=== PATIENT | female | born 1960 | race Caucasian/White ===

== ENCOUNTER 2016-10-06 13:35 | Emergency (ER) | payer OTHER, BC ==
[2016-10-06 13:36] VITALS: BMI 21.9
[2016-10-06 13:56] VITALS: BP 115/77; PULSE 77; RESP 16; TEMP 98.5; O2SAT 96
--- NOTE | 2016-10-06 13:59 | ED PDOC ---
Arrival/HPI - General Chief Complaint: Finger,Hand,&Wrist Time Seen by Provider: 10/06/16 13:57 Historian: Patient - History of Present Illness Narrative History of Present Illness (Text): 10/06/16 13:57 This 55-year-old female presents to this emergency department complaining of left fourth finger pain 2 weeks. Patient stated while pushing a stretcher, she developed an acute left fourth finger pain. Patient has been taken over-the- counter medication for pain. Patient has seen her primary care physician for same pain. Patient has an appointment to see orthopedic in 2 weeks. Patient denies other complaints Time/Duration: Other (2 weeks) Quality: Aching Context: Home Past Medical History - Provider Review Nursing Documentation Reviewed: Yes - Infectious Disease Hx of Infectious Diseases: None - Tetanus Immunization Tetanus Immunization: Unknown - Past Medical History Past Medical History: Unable to Obtain - Cardiac Hx Cardiac Disorders: No - Pulmonary Hx Respiratory Disorders: No - Neurological Hx Neurological Disorder: Yes Hx Dizziness: Yes Hx Vertigo: Yes - HEENT Hx HEENT Disorder: Yes - Renal Hx Renal Disorder: No - Endocrine/Metabolic Hx Endocrine Disorders: Yes Hx Diabetes Mellitus Type 2: Yes (niddm) - Hematological/Oncological Hx Blood Disorders: No - Integumentary Hx Dermatological Disorder: No - Musculoskeletal/Rheumatological Hx Musculoskeletal Disorders: Yes Hx Falls: Yes - Gastrointestinal Hx Gastrointestinal Disorders: Yes Hx Colitis: Yes Hx Diverticulitis: Yes Hx Gall Bladder Disease: Yes Hx Hemorrhoids: Yes - Genitourinary/Gynecological Hx Genitourinary Disorders: No - Psychiatric Hx Psychophysiologic Disorder: No Hx Substance Use: No - Past Surgical History Past Surgical History: Unable to Obtain - Surgical History Hx Section: Yes Hx Cholecystectomy: Yes Other/Comment: rhinoplasty - Anesthesia Hx Anesthesia: Yes Hx Anesthesia Reactions: No Hx Malignant Hyperthermia: No - Suicidal Assessment Feels Threatened In Home Enviroment: No Family/Social History - Physician Review Nursing Documentation Reviewed: Yes Family/Social History: No Known Family HX Smoking Status: Never Smoked Hx Alcohol Use: Yes (WINE SOCIALLY) Hx Substance Use: No Hx Substance Use Treatment: No Allergies/Home Meds Allergies/Adverse Reactions: Allergies aspirin Allergy (Verified 10/06/16 13:53) RASH lansoprazole [From Prevacid] Allergy (Verified 10/06/16 13:53) RASH Home Medications: Home Meds Medication Instructions Recorded Confirmed Metformin Hydrochloride [Metformin] 250 mg PO BID 02/07/12 08/09/15 Multivitamin [Multivitamin] 1 tab PO DAILY 02/13/13 08/09/15 Atorvastatin [Lipitor] 10 mg PO DAILY 03/31/15 08/09/15 Review of Systems - Review of Systems Constitutional: Normal. absent: Fatigue, Weight Change, Fevers Eyes: Normal ENT: Normal Respiratory: Normal Cardiovascular: Normal Gastrointestinal: Normal Genitourinary Female: Normal Musculoskeletal: Other (left 4th finger pain) Skin: Normal Neurological: Normal Endocrine: Normal Hemo/Lymphatic: Normal Psychiatric: Normal Physical Exam Vital Signs Temp Pulse Resp BP Pulse Ox 10/06/16 13:53 98.5 F 77 16 115/77 96 Temperature: Afebrile Blood Pressure: Normal Pulse: Regular Respiratory Rate: Normal Appearance: Positive for: Well-Appearing, Non-Toxic, Comfortable Pain Distress: None Mental Status: Positive for: Alert and Oriented X 3 - Systems Exam Head: Present: Atraumatic, Normocephalic Pupils: Present: PERRL Extroacular Muscles: Present: EOMI Conjunctiva: Present: Normal Mouth: Present: Moist Mucous Membranes Neck: Present: Normal Range of Motion Back: Present: Normal Inspection Upper Extremity: Present: Normal Inspection, Normal ROM, NORMAL PULSES, Tenderness (mild tenderness at left 4th proximal phalanx, and distal 4th metacarpal bone area. No swelling, erythema, or ecchymosis.). No: Cyanosis, Edema Lower Extremity: Present: Normal Inspection. No: Edema Neurological: Present: GCS=15, CN II-XII Intact, Speech Normal Skin: Present: Warm, Dry, Normal Color. No: Rashes Psychiatric: Present: Alert, Oriented x 3, Normal Insight, Normal Concentration Medical Decision Making ED Course and Treatment: 10/06/16 14:29 Patient can complaining of left finger pain 2 weeks. Physical exam was unremarkable. No ecchymosis, swelling, erythema visualized on left hand\fourth finger. Finger splint was ordered. Patient was recommended to follow Workmen's Comp. Patient was also recommended to follow [employer] recommendation. To return to the emergency if symptoms persist. Re-evaluation Time: 14:31 Reassessment Condition: Re-examined, Improved - RAD Interpretation Narrative RAD Interpretations (Text): 06/09/17 14:32 Left fourth finger x-rays: No fracture or dislocation. Radiology Orders: 10/06/16 13:57 HAND LEFT 4TH DIGIT (FINGER) [RAD] Stat Disposition/Present on Arrival - Present on Arrival Any Indicators Present on Arrival: No History of DVT/PE: No History of Uncontrolled Diabetes: No Urinary Catheter: No History of Decub. Ulcer: No History Surgical Site Infection Following: None - Disposition Have Diagnosis and Disposition been Completed?: Yes Diagnosis: Finger pain, left Disposition: HOME/ ROUTINE Disposition Time: 14:32 Patient Plan: Discharge Condition: GOOD Discharge Instructions (ExitCare): Finger Sprain (ED) Additional Instructions: Employee [employer]. for follow-up visit in 1-2 days. Keep finger splint at all times until evaluated by Dr. Keep finger splint clean and dry. Take medication as instructed with food. Return to the emergency if symptoms worsen. [employer]. office located name [facility]. Prescriptions: Acetaminophen with Codeine [Tylenol with Codeine #3 Tablet] 1 each PO Q6H PRN # 10 tablet PRN Reason: Pain, Severe (8-10) Referrals: Victoriano Lopez MD [Primary Care Provider] - Follow up with primary Forms: WORK NOTE
--- NOTE | 2016-10-06 15:23 | RAD ---
PROCEDURE: Left Hand Radiographs. HISTORY: pain COMPARISON: None. FINDINGS: BONES: Normal. No fracture. JOINTS: Normal. No osteoarthritic changes. SOFT TISSUES: Normal. OTHER FINDINGS: None. IMPRESSION: Normal left hand radiographs.
== END 2016-10-06 14:55 | disposition home or self-care (01) ==
LOC: ED 13:35
DX: M79.645 Pain in left finger(s) (principal); E11.9 Type 2 diabetes mellitus without complications

== ENCOUNTER 2017-01-24 12:04 | Observation (INO) | payer OTHER, BC ==
[2017-01-24 12:04] VITALS: BMI 21.9
--- NOTE | 2017-01-24 12:43 | ED PDOC ---
Arrival/HPI - General Chief Complaint: Syncope Time Seen by Provider: 01/24/17 12:04 Historian: Patient - History of Present Illness Narrative History of Present Illness (Text): 01/24/17 12:27 A 56 year old female, whose past medical history includes diabetes and hyperlipidemia, presents to the emergency department complaining of syncopal episode. Patient reports while she was at work, she began to feel shaky and sweaty. In attempt to feel better, she ate some crackers and drank orange juice , but symptoms were not relieved. Patient began to experience dizziness as well and she was advised to visit the ER but wanted to eat instead because she thought it was due hypoglycemia (though her glucose check was 100). A while later patient passed out and fell head first, injuring her head. Patient denies of any fever, nausea, vomiting, abdominal pain, chest pain, shortness of breath, cough, urine output changes, visual changes, or any other complaints. Also, patient mentions she is no longer feeling shaky and sweating, only forehead pain from head injury. Patient takes medications for her diabetes and hyperlipidemia. PMD: Dr. Lopez Symptom Onset: Sudden Symptom Course: Unchanged Past Medical History - Provider Review Nursing Documentation Reviewed: Yes - Infectious Disease Hx of Infectious Diseases: None - Tetanus Immunization Tetanus Immunization: Unknown - Past Medical History Past Medical History: Unable to Obtain - Cardiac Hx Cardiac Disorders: No - Pulmonary Hx Respiratory Disorders: No - Neurological Hx Neurological Disorder: Yes Hx Dizziness: Yes Hx Vertigo: Yes - HEENT Hx HEENT Disorder: Yes - Renal Hx Renal Disorder: No - Endocrine/Metabolic Hx Endocrine Disorders: Yes Hx Diabetes Mellitus Type 2: Yes (niddm) - Hematological/Oncological Hx Blood Disorders: No - Integumentary Hx Dermatological Disorder: No - Musculoskeletal/Rheumatological Hx Musculoskeletal Disorders: Yes Hx Falls: Yes - Gastrointestinal Hx Gastrointestinal Disorders: Yes Hx Colitis: Yes Hx Diverticulitis: Yes Hx Gall Bladder Disease: Yes Hx Hemorrhoids: Yes - Genitourinary/Gynecological Hx Genitourinary Disorders: No - Psychiatric Hx Psychophysiologic Disorder: No Hx Substance Use: No - Past Surgical History Past Surgical History: Unable to Obtain - Surgical History Hx Section: Yes Hx Cholecystectomy: Yes Other/Comment: rhinoplasty - Anesthesia Hx Anesthesia: Yes Hx Anesthesia Reactions: No Hx Malignant Hyperthermia: No - Suicidal Assessment Feels Threatened In Home Enviroment: No Family/Social History - Physician Review Nursing Documentation Reviewed: Yes Family/Social History: No Known Family HX Smoking Status: Never Smoked Hx Alcohol Use: Yes (WINE SOCIALLY) Hx Substance Use: No Hx Substance Use Treatment: No Allergies/Home Meds Allergies/Adverse Reactions: Allergies aspirin Allergy (Verified 01/24/17 12:05) RASH lansoprazole [From Prevacid] Allergy (Verified 01/24/17 12:05) RASH Home Medications: Home Meds Medication Instructions Recorded Confirmed Metformin Hydrochloride [Metformin] 500 mg PO BID 02/07/12 01/24/17 Atorvastatin [Lipitor] 10 mg PO DAILY 03/31/15 01/24/17 Meclizine [Meclizine*] 25 mg PO Q6 PRN 01/24/17 01/24/17 Review of Systems - Physician Review All systems were reviewed & negative as marked: Yes - Review of Systems Constitutional: Other (head injury). absent: Fevers, Night Sweats Eyes: absent: Vision Changes Respiratory: absent: SOB, Cough Cardiovascular: Syncope. absent: Chest Pain Gastrointestinal: absent: Abdominal Pain, Nausea, Vomiting Genitourinary Female: absent: Urine Output Changes Neurological: Headache, Dizziness Endocrine: Other (felt like hypoglycemia) Physical Exam Vital Signs Temp Pulse Resp BP Pulse Ox 01/24/17 14:04 98.4 F 84 15 137/80 100 01/24/17 12:04 98.3 F 85 14 139/77 96 Temperature: Afebrile Blood Pressure: Normal Pulse: Regular Respiratory Rate: Normal Appearance: Positive for: Well-Appearing, Non-Toxic, Comfortable Pain Distress: None Mental Status: Positive for: Alert and Oriented X 3 Finger Stick Blood Glucose: 137 - Systems Exam Head: Present: Tenderness (mild tenderness to left upper forehead), Swelling ( mild swelling to left upper forehead) Pupils: Present: PERRL Extroacular Muscles: Present: EOMI Conjunctiva: Present: Normal Mouth: Present: Moist Mucous Membranes Pharnyx: Present: Normal. No: ERYTHEMA, EXUDATE Neck: Present: Normal Range of Motion. No: MIDLINE TENDERNESS Respiratory/Chest: Present: Clear to Auscultation, Good Air Exchange. No: Respiratory Distress, Accessory Muscle Use Cardiovascular: Present: Regular Rate and Rhythm, Normal S1, S2. No: Murmurs Abdomen: Present: Normal Bowel Sounds. No: Tenderness, Distention, Peritoneal Signs Back: Present: Normal Inspection. No: Midline Tenderness Upper Extremity: Present: Normal Inspection. No: Cyanosis, Edema Lower Extremity: Present: Normal Inspection. No: Edema Neurological: Present: GCS=15, CN II-XII Intact, Speech Normal, Motor Func Grossly Intact, Gait Normal, Memory Normal Skin: Present: Warm, Dry, Normal Color. No: Rashes Psychiatric: Present: Alert, Oriented x 3, Normal Insight, Normal Concentration Medical Decision Making ED Course and Treatment: 01/24/17 12:32 Impression: 56 year old female with syncopal episode and dizziness. Differential Diagnosis included but are not limited to: Hypoglycemia vs. Cardiogenic Syncope vs. Neurogenic Plan: -- EKG -- Brain CT -- Chest X-ray -- Labs -- Urinalysis -- Reassess and disposition Prior Visits: Notes and results from previous visits were reviewed. Patient was last seen in the emergency department on 10/06/2016 for left fourth finger pain. Patient was dicharged home. Progress Notes: 01/24/2017 13:15 Chest X-ray IMPRESSION: No active disease. No interval pathology appreciated Dictator: Dior Jarvis MD 01/23/2017 14:[address] IMPRESSION: No intracranial hemorrhage or mass effect. No calvarial fracture appreciated. Dictator: Dior Jarvis MD EKG: Ordered, reviewed, and independently interpreted the EKG. Rate : 89 BPM Rhythm : NSR Interpretation : No ST-segment elevations or depressions, no T-wave inversions, normal intervals. Comparison : No previous EKG for comparison. 01/24/17 15:34 Patient with noted history; brain CT with no m/s/b. Patient with syncope and though felt like possible hypglycemia, her glucose at the time of the check was normal. EKG and labs are unremarkable, but given h/o DM and hyperlipidemia, will need further observation on tele; discussed with Dr. Lopez for placement on her service. - Lab Interpretations Lab Results: 01/24/17 12:44 01/24/17 12:47 Lab Results 01/24/17 14:21: Urine Color Yellow, Urine Appearance Clear, Urine pH 6.0, Ur Specific [place] <= 1.005, Urine Protein Negative, Urine Glucose (UA) 250 H, Urine Ketones Negative, Urine Blood Negative, Urine Nitrate Negative, Urine Bilirubin Negative, Urine Urobilinogen 0.2, Ur Leukocyte Esterase Negative 01/24/17 12:50: PT 10.6, INR 0.98, APTT 33.5 H 01/24/17 12:47: Sodium 141, Potassium 3.7, Chloride 105, Carbon Dioxide 22, Anion Gap 18, BUN 13, Creatinine 0.7, Est GFR ( Amer) > 60, Est GFR (Non- Af Amer) > 60, Random Glucose 125 H, Calcium 9.8, Magnesium 1.8, Total Bilirubin 0.4, AST 29, ALT 25, Alkaline Phosphatase 83, Lactate Dehydrogenase 478, Total Creatine Kinase 125, Troponin I < 0.01, Total Protein 7.5, Albumin 4.5, Globulin 3.0, Albumin/Globulin Ratio 1.5, Lipase 234 01/24/17 12:44: WBC 9.6, RBC 4.63, Hgb 13.7, Hct 40.5, MCV 87.5, MCH 29.6, MCHC 33.8, RDW 12.4, Plt Count 220, MPV 9.9, Gran % 51.9, Lymph % (Auto) 41.8 H, Reagan % (Auto) 4.6, Eos % (Auto) 1.5, Baso % (Auto) 0.2, Gran # 5.00, Lymph # 4.0 H, Reagan # 0.4, Eos # 0.1, Baso # 0.02 I have reviewed the lab results: Yes - RAD Interpretation Radiology Orders: 01/24/17 12:45 Brain [HEAD W/O CONTRAST] [CT] Stat CHEST PORTABLE [RAD] Stat - Medication Orders Current Medication Orders: Sodium Chloride (Sodium Chloride 0.9%) 1,000 mls @ 999 mls/hr IV .Q1H1M STA Stop: 01/24/17 15:53 Last Admin: 01/24/17 15:06 Dose: 999 mls/hr eMAR Start Stop Document 01/24/17 15:06 AB (Rec: 01/24/17 15:06 AB [id number]) Intravenous Solution Start Date 01/24/17 Start Time 15:06 End Date 01/24/17 End time 16:06 Total Infusion Time 60 Discontinued Medications Famotidine (Pepcid) 20 mg IVP STAT STA Stop: 01/24/17 14:51 Last Admin: 01/24/17 15:05 Dose: 20 mg IVP Administration Document 01/24/17 15:05 AB (Rec: 01/24/17 15:06 [id number] Charges for Administration # of IVP Administrations 1 Ondansetron HCl (Zofran Inj) 4 mg IVP STAT STA Stop: 01/24/17 14:51 Last Admin: 01/24/17 15:03 Dose: 4 mg IVP Administration Document 01/24/17 15:03 AB (Rec: 01/24/17 15:05 [id number] Charges for Administration # of IVP Administrations 1 - Scribe Statement The provider has reviewed the documentation as recorded by the Rosaura Diehl Provider Scribe Attestation: All medical record entries made by the Scribe were at my direction and personally dictated by me. I have reviewed the chart and agree that the record accurately reflects my personal performance of the history, physical exam, medical decision making, and the department course for this patient. I have also personally directed, reviewed, and agree with the discharge instructions and disposition. Disposition/Present on Arrival - Present on Arrival Any Indicators Present on Arrival: No History of DVT/PE: No History of Uncontrolled Diabetes: No Urinary Catheter: No History of Decub. Ulcer: No History Surgical Site Infection Following: None - Disposition Have Diagnosis and Disposition been Completed?: Yes Diagnosis: Syncope Disposition: HOSPITALIZED Disposition Time: 14:37 Patient Plan: Observation, Telemetry Condition: FAIR
[2017-01-24 12:54] LABS: BASO # 0.02 K/mm3 (0.0-2.0); BASO % 0.2 % (0.0-3.0); EOS # 0.1 (0.0-0.7); EOS % 1.5 % (1.5-5.0); GRAN % 51.9 % (50.0-68.0); HEMATOCRIT 40.5 % (36.0-48.0); LYMPH % 41.8 % (22.0-35.0); MEAN CELL VOLUME 87.5 fl (80.0-105.0); MEAN CORPUSCULAR HEMOGLOBIN 29.6 pg (25.0-35.0); MEAN CORPUSCULAR HGB CONC 33.8 g/dl (31.0-37.0); MEAN PLATELET VOLUME 9.9 fl (7.0-11.0); MONO # 0.4 (0.1-0.6); MONO % 4.6 % (1.0-6.0); RED CELL DISTRIBUTION WIDTH 12.4 % (11.5-14.5); WHITE BLOOD COUNT 9.6 10^3/ul (4.5-11.0)
[2017-01-24 13:02] LABS: INR 0.98 (0.93-1.08); PARTIAL THROMBOPLASTIN TIME 33.5 Seconds (23.7-30.8)
[2017-01-24 13:04] LABS: ALB/GLOB RATIO 1.5 (1.1-1.8); ALKALINE PHOSPHATASE 83 U/L (38-126); ALT/SGPT 25 U/L (7-56); AST/SGOT 29 U/L (14-36); BILIRUBIN,TOTAL 0.4 mg/dL (0.2-1.3); BLOOD UREA NITROGEN 13 mg/dL (7-21); CALCIUM 9.8 mg/dL (8.4-10.5); CARBON DIOXIDE 22 mmol/L (21-33); CHLORIDE 105 mmol/L (98-107); GFR AFRICAN-AMERICAN > 60; GLUCOSE,RANDOM 125 mg/dL (70-110); LIPASE 234 U/L (23-300); MAGNESIUM 1.8 mg/dL (1.7-2.2); POTASSIUM 3.7 mmol/L (3.6-5.0); SODIUM 141 mmol/L (132-148); TOTAL PROTEIN 7.5 g/dL (5.8-8.3)
[2017-01-24 13:13] LABS: TROPONIN I < 0.01 ng/mL
--- NOTE | 2017-01-24 13:17 | RAD ---
HISTORY: syncope COMPARISON: 09/08/2015 FINDINGS: LUNGS: No active pulmonary disease. PLEURA: No significant pleural effusion identified, no pneumothorax apparent. CARDIOVASCULAR: Mild cardiomegaly and similar probable top-normal appearance to the right hilum OSSEOUS STRUCTURES: No significant abnormalities. VISUALIZED UPPER ABDOMEN: Normal. OTHER FINDINGS: None. IMPRESSION: No active disease. No interval pathology appreciated
--- NOTE | 2017-01-24 13:52 | PCM.RRT ---
<MehdiNareshn - Last Filed: 01/24/17 15:00> TAX ECONOMIST Nurse Assessment - Situation Date: 01/24/17 Time TAX ECONOMIST was called: 11:42 TAX ECONOMIST Responder Arrival Time: 11:45 TAX ECONOMIST Location:: [facility], 1b elevator Room Number: n/a TAX ECONOMIST Reason for Call: Change in Mental Status TAX ECONOMIST Called By: Other Disciplines - IV IV Inserted during TAX ECONOMIST?: No - Respiratory Oxygen Delivery Method: Room Air I.Reason for TAX ECONOMIST - A) Acute Change in Patient: Subjective: This is a 56 year old female with a history of Type 2 Diabetes Mellitus who was called after falling on the first floor by the B elevators. The patient stated that she felt "shaky" and needed to eat something. The patient was witnessed by a coworker falling down and hitting her head. The patient was blood glucose upon initial check was 99. Patient was sinus tachycardic at 112. The patient was given orange juice to drink and transferred to the emergency department on a stretcher for further testing. - Head Head Exam: ATRAUMATIC, NORMAL INSPECTION, NORMOCEPHALIC - Eyes Eye Exam: EOMI, Normal appearance, PERRL. absent: Periorbital tenderness - Respiratory Exam Respiratory Exam: Clear to Ausculation Bilateral, NORMAL BREATHING PATTERN. absent: Accessory Muscle Use, Chest Wall Tenderness - Cardiovascular Exam Cardiovascular Exam: Tachycardia, REGULAR RHYTHM, +S1, +S2. absent: Diastolic murmur - GI/Abdominal Exam GI & Abdominal Exam: Soft, Normal Bowel Sounds. absent: Rigid, Tenderness - Neurological Exam Neurological Exam: Alert, Awake, CN II-XII Intact, Normal Gait, Oriented x3. absent: Altered - Extremities Exam Extremities Exam: Full ROM Plan - Assessment of Findings&Treatment Plan This is a 56 year old female with a past medical history of diabetes who a Rapid response was called due to possible unwitnessed syncopal episode. Patient currently takes Metformin 500mg BID. Patient blood glucose 99. The patient was hemodynamically stable. -Gave her orange juice and transferred her to the emergency department for further testing. -Discussed with Attending the plan of action. <Sanya Jackson B - Last Filed: 01/24/17 18:47> Attending/Attestation - Attestation I have personally seen and examined this patient.: Yes I have fully participated in the care of the patient.: Yes I have reviewed all pertinent clinical information, including history, physical exam and plan: Yes
[2017-01-24 14:24] LABS: URINE BILIRUBIN NEGATIVE (NEGATIVE); URINE BLOOD NEGATIVE (NEGATIVE); URINE GLUCOSE (UA) 250 mg/dL (NEGATIVE); URINE KETONE NEGATIVE (NEGATIVE); URINE LEUKOCYTE ESTERASE NEGATIVE Leu/uL (NEGATIVE); URINE PROTEIN NEGATIVE mg/dL (<30 mg/dL); URINE UROBILINOGEN 0.2 E.U./dL (<1 E.U./dL)
[2017-01-24 14:26] LABS: URINE APPEARANCE CLEAR (CLEAR); URINE COLOR YELLOW (YELLOW)
[2017-01-24] MEDS ORDERED: Sodium Chloride 0.9% 1,000 ML IV STA (14:53)
--- NOTE | 2017-01-24 14:56 | CT ---
PROCEDURE: CT HEAD WITHOUT CONTRAST. HISTORY: fall; hit head; headache, syncope COMPARISON: 04/17/2014 TECHNIQUE: Axial computed tomography images were obtained through the head/brain without intravenous contrast. Radiation dose: Total exam DLP = 824 mGy-cm. This CT exam was performed using one or more of the following dose reduction techniques: Automated exposure control, adjustment of the mA and/or kV according to patient size, and/or use of iterative reconstruction technique. FINDINGS: HEMORRHAGE: No intracranial hemorrhage. BRAIN: No mass effect or edema. No atrophy or chronic microvascular ischemic changes. VENTRICLES: Unremarkable. No hydrocephalus. CALVARIUM: Unremarkable. PARANASAL SINUSES: Unremarkable as visualized. No significant inflammatory changes. MASTOID AIR CELLS: Unremarkable as visualized. No inflammatory changes. OTHER FINDINGS: These are the best possible images at this time. Should additional imaging be obtained in I am made aware of it and addendum can be issued IMPRESSION: No intracranial hemorrhage or mass effect. No calvarial fracture appreciated
[2017-01-24] MEDS: Sodium Chloride 0.45% 1,000 ML IV SCH (18:23)
[2017-01-24] MEDS ORDERED: Gadodiamide 287 MG/ML VIAL (15ML) IV ONE (19:06)
--- NOTE | 2017-01-24 20:22 | MRI ---
EXAM: MR Head Without and With Intravenous Contrast EXAM DATE/TIME: 01/24/2017 5:44 PM CLINICAL HISTORY: The patient age is 56 years old and is female; Signs and symptoms; Dizziness; Patient HX: Patient passed out; Additional info: Syncope Facility exam id and description: Mri br cs brain w wo contrast TECHNIQUE: Magnetic resonance images of the head/brain without and with intravenous contrast in multiple planes. CONTRAST: 15 mL of omniscan administered intravenously. COMPARISON: CT - HEAD W/O CONTRAST 01/24/2017 2:20:46 PM FINDINGS: Brain: There is no restricted diffusion within the brain to suggest acute ischemic change. There are scattered foci of high FLAIR signal intensity within the cerebral white matter. There is no mass effect or restricted diffusion associated with these foci. In a patient this age, this likely represents chronic small vessel ischemic disease. No abnormally enhancing intracranial mass is visualized. The hippocampi are normal in size and signal intensity, without mesial temporal sclerosis. No cerebral edema. Ventricles: No ventriculomegaly. Bones/joints: No acute abnormality. Sinuses: There is minimal mucosal thickening of the ethmoid air cells bilaterally as well as the left frontal sinus. No acute sinusitis. Mastoid air cells: No mastoid effusion. Orbits: No acute abnormality, as visualized. IMPRESSION: 1. There is no restricted diffusion within the brain to suggest acute ischemic change. 2. There are scattered foci of high FLAIR signal intensity within the cerebral white matter. In a patient this age, this likely represents chronic small vessel ischemic disease. 3. Incidental/non-acute findings are described above.
[2017-01-24] MEDS: Insulin Lispro (humaLOG) MEDIUM Coverage SC SCH (21:46)
[2017-01-25 00:32] VITALS: RESP 18
--- NOTE | 2017-01-25 01:21 | HP ---
HISTORY OF PRESENT ILLNESS: The patient is 56 years old [place] female known to me from office practice. 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 She is a known diabetic. The patient states she takes her medication regularly. Today in the afternoon, she stated she felt little hungry, then she felt shaky and then she felt as if she has to eat something. She was standing by the elevator, and she passed out and her co-worker witnessed that and rapid response was called. She was given juice and transferred to emergency room for further followup. When she had her blood sugar checked, it was 99. She was tachycardic. The patient denies any fever, no chills. No history of nausea or vomiting. No history of diarrhea. No abdominal pain. No complaint of headache. She states she feels fine now, but just feels generally weak. PAST MEDICAL HISTORY: Significant for: 1. Hypertension. 2. Non-insulin dependent diabetes. 3. Hyperlipidemia. ALLERGIES: SHE IS ALLERGIC TO ASPIRIN AND LANSOPRAZOLE. MEDICATIONS AT HOME: She is on metformin 500 twice a day, meclizine 25 t.i.d. p.r.n., and Lipitor 10 mg daily. SOCIAL HISTORY: She is . Lives with her . Denies smoking. Socially drinks. REVIEW OF SYSTEMS: Significant for just having little headache and feel weak. PHYSICAL EXAMINATION GENERAL: She is awake and alert, communicative. VITAL SIGNS: She is afebrile, pulse 72, respirations 15, and blood pressure 126/78. LUNGS: Bilateral fair airflow. No rhonchi or crackle. HEART: S1 and S2 audible. ABDOMEN: Soft, nontender. No rebound. No guarding. NEUROLOGICAL: The patient is awake and alert, able to communicate. LABORATORY DATA: WBC is 9.6, hemoglobin 13.7, hematocrit 40.5, and platelet count is 220. PT 10.6, INR 0.98, and PTT 33.5. Chemistry: Sodium 141, potassium 3.7, chloride 105, CO2 of 22, BUN 13, creatinine 0.7, and blood sugar of 273. Urinalysis shows blood sugar of 250. CT scan of the head is negative. ASSESSMENT AND PLAN: 1. Status post altered mental status, probably secondary to hypoglycemia. 2. Syncope, could be vasovagal. 3. Hypertension. 4. History of non-insulin dependent diabetes. PLAN: We will place the patient in observation. We will start her gentle hydration. Monitor her blood sugar. Review medication and order for carotid Doppler. The patient had MRI and MRA of the brain done because of her previous episodes of dizziness, they were unremarkable. Her last MRI was in 2014. I will order for MRI and MRA of the brain and Dr. Argueta, who is a neurologist will be consulted. Victoriano Lopez MD
[2017-01-25 06:27] LABS: BASO # 0.02 K/mm3 (0.0-2.0); BASO % 0.3 % (0.0-3.0); EOS # 0.1 (0.0-0.7); EOS % 1.4 % (1.5-5.0); GRAN # 3.46 (1.4-6.5); GRAN % 44.2 % (50.0-68.0); HEMATOCRIT 38.4 % (36.0-48.0); LYMPH # 3.8 (1.2-3.4); MEAN CELL VOLUME 87.5 fl (80.0-105.0); MEAN CORPUSCULAR HEMOGLOBIN 28.9 pg (25.0-35.0); MEAN CORPUSCULAR HGB CONC 33.1 g/dl (31.0-37.0); MEAN PLATELET VOLUME 9.8 fl (7.0-11.0); MONO # 0.4 (0.1-0.6); MONO % 5.1 % (1.0-6.0); RED CELL DISTRIBUTION WIDTH 12.5 % (11.5-14.5); WHITE BLOOD COUNT 7.8 10^3/ul (4.5-11.0)
[2017-01-25 06:41] VITALS: BP 97/52; TEMP 98; O2SAT 96
[2017-01-25 06:49] LABS: ALB/GLOB RATIO 1.2 (1.1-1.8); ALKALINE PHOSPHATASE 66 U/L (38-126); ALT/SGPT 33 U/L (7-56); AST/SGOT 23 U/L (14-36); BILIRUBIN,TOTAL 0.6 mg/dL (0.2-1.3); BLOOD UREA NITROGEN 8 mg/dL (7-21); CALCIUM 9.1 mg/dL (8.4-10.5); CARBON DIOXIDE 26 mmol/L (21-33); CHLORIDE 109 mmol/L (95-110); GFR AFRICAN-AMERICAN > 60; GLUCOSE,RANDOM 82 mg/dL (70-110); MAGNESIUM 1.9 mg/dL (1.7-2.2); POTASSIUM 3.9 mmol/L (3.6-5.0); SODIUM 144 mmol/L (132-148); TOTAL PROTEIN 6.5 g/dL (5.8-8.3)
--- NOTE | 2017-01-25 08:21 | CARD ---
APPROVED REPORT EKG Measurement Heart [id number] <Conclusion> Normal sinus rhythm Normal ECG No change
[2017-01-25] MEDS: Sodium Chloride 0.45% 1,000 ML IV SCH (08:31)
[2017-01-25] MEDS: Insulin Lispro (humaLOG) MEDIUM Coverage SC SCH ×2 (08:31→12:39)
[2017-01-25 10:42] LABS: FREE T4 1.08 ng/dL (0.78-2.19)
[2017-01-25 10:56] LABS: THYROID STIMULATING HORMONE 1.13 mIU/mL (0.46-4.68)
--- NOTE | 2017-01-25 12:11 | US ---
PROCEDURE: Bilateral carotid artery duplex ultrasound HISTORY: Carotid stenosis syncope PHYSICIAN(S): Be Mann MD. TECHNIQUE: Duplex sonography and color-flow Doppler were used to evaluate the carotid bifurcations and limited segments of the vertebral arteries bilaterally. FINDINGS: There is mild smooth heterogeneous plaque noted at the carotid bifurcations bilaterally. The peak systolic velocity in the proximal right internal carotid artery is 90 cm/sec. This corresponds to a 20 to 39% proximal right ICA stenosis. Normal systolic velocities are noted in the proximal right external carotid artery. There is antegrade flow in the right vertebral artery. The peak systolic velocity in the proximal left internal carotid artery is 75 cm/sec. This corresponds to a 20 to 39% proximal left ICA stenosis. Normal systolic velocities are noted in the proximal left external carotid artery. There is antegrade flow in the left vertebral artery. IMPRESSION: 1. Bilateral 20-39% proximal ICA stenoses. 2. Antegrade flow in both vertebral arteries.
[2017-01-25 17:17] VITALS: PULSE 61
--- NOTE | 2017-01-26 11:35 | DS ---
HISTORY OF PRESENT ILLNESS: The patient is 56 years old, who almost passed out at work because feeling weak. She states her hands were shaking and she was hungry. She is diabetic. She did take her medicine yesterday morning. It was about the time to have her lunch, but probably it got delayed and her sugar was low and she was given juice. She was taken to ER, started to feel better. PHYSICAL EXAMINATION: GENERAL: On examination, today patient is awake, alert, oriented, communicative. Says she has little headache, otherwise feels fine. No dizziness. Eating and tolerating. VITAL SIGNS: She is afebrile. Pulse 62, respirations 18, blood pressure 97/52. LUNGS: Bilateral fair airflow. No rhonchi or crackle. HEART: S1 and S2 audible. ABDOMEN: Soft, nontender. No rebound, no guarding. NEUROLOGIC: She is awake and alert. Able to communicate. LABORATORY DATA: WBC 7.8, hemoglobin 12.7, hematocrit 38.4, platelet 217. Chemistry; sodium 144, potassium 3.9, chloride 109, CO2 of 26, BUN 8, creatinine 0.6, blood sugar of 217. She had MRI of the brain done, that is negative. Carotid Doppler is unremarkable. ASSESSMENT: 1. Syncope, probably secondary to hypoglycemia. No focal deficit. 2. Insulin-dependent diabetes. 3. Hypertension. 4. Hyperlipidemia. PLAN: Patient is clinically stable. Diabetic education was advised to monitor and manage her blood sugar and she is clinically stable. She will be discharged home today. She will resume her medication as prior to admission. Victoriano Lopez MD
== END 2017-01-25 17:13 | disposition home or self-care (01) ==
LOC: ED 12:04 → ERH 14:37 → 2RNO 20:17
PROVIDERS: ADMIT Internal Medicine; ATTEND Internal Medicine
DX: E11.649 Type 2 diabetes mellitus with hypoglycemia without coma (principal); R55 Syncope and collapse; I10 Essential (primary) hypertension; E78.5 Hyperlipidemia, unspecified; Z79.84 Long term (current) use of oral hypoglycemic drugs; Z88.6 Allergy status to analgesic agent
CPT/HCPCS: 36415; 70450; 70553; 71010; 80053; 81003; 82550; 82948; 83036; 83615; 83690; 83735; 84439; 84443; 84484; 85025; 85610; 85730; 93005; 93880; 96361; 96374; 96375; 99285; A9579; G0378; J2405; J7030; J7040

== ENCOUNTER 2017-04-20 13:05 | Emergency (ER) | payer BC ==
[2017-04-20 13:05] VITALS: BMI 21.9
[2017-04-20 13:14] VITALS: BP 120/65; PULSE 69; RESP 16; TEMP 97.9; O2SAT 97
[2017-04-20] MEDS ORDERED: Sodium Chloride 0.9% 500 ML IV STA (13:37)
--- NOTE | 2017-04-20 13:50 | ED PDOC ---
Arrival/HPI - General Chief Complaint: Dizziness/Lightheaded Time Seen by Provider: 04/20/17 13:16 Historian: Patient - History of Present Illness Narrative History of Present Illness (Text): 04/20/17 13:25 Melody Dawson is a 56 year old female, whose past medical history includes diabetes and vertigo, who presents to the emergency department complaining of dizziness since prior to arrival. Patient reports she was pushing a stretcher when she immediately felt dizziness and asked for assistance. She states after the dizziness she developed a headache mainly on the yazidi area. Patient notes these symptoms are similar to her previous vertigo. Additionally, she informs the dizziness is worse with movement and becomes nauseous. Patient denies chest pain, shortness of breath, fever, chills, cough, vomiting, diarrhea, abdominal pain, or other complaints. 04/20/17 16:52 pt denied vision changes, no LOC/recent trauma, no neck pain, no facial changes , no slurr speech, no focal weakness, no gait changes pt is here for further eval pt's without other complaints. Time/Duration: 1-3 hours Symptom Onset: Sudden Symptom Course: Unchanged Context: Exertion, Other (position changes) Past Medical History - Provider Review Nursing Documentation Reviewed: Yes - Travel History Have you recently traveled outside [place] w/in the past 3 mons?: No - Infectious Disease Hx of Infectious Diseases: None - Tetanus Immunization Tetanus Immunization: Unknown - Past Medical History Past Medical History: Unable to Obtain - Cardiac Hx Cardiac Disorders: No - Pulmonary Hx Respiratory Disorders: No - Neurological Hx Neurological Disorder: (vertigo) Hx Syncope: Yes - HEENT Hx HEENT Disorder: Yes - Renal Hx Renal Disorder: No - Endocrine/Metabolic Hx Diabetes Mellitus Type 2: Yes - Hematological/Oncological Hx Blood Disorders: No - Integumentary Hx Dermatological Disorder: No - Musculoskeletal/Rheumatological Hx Musculoskeletal Disorders: Yes - Gastrointestinal Hx Gastrointestinal Disorders: (colitis) Hx Diverticulitis: Yes - Genitourinary/Gynecological Hx Genitourinary Disorders: No - Psychiatric Hx Psychophysiologic Disorder: No Hx Substance Use: No - Past Surgical History Past Surgical History: Unable to Obtain - Surgical History Hx Cholecystectomy: Yes - Anesthesia Hx Anesthesia: Yes Hx Anesthesia Reactions: No Hx Malignant Hyperthermia: No - Suicidal Assessment Feels Threatened In Home Enviroment: No Family/Social History Family/Social History: No Known Family HX (pt is ambiadextrous) Smoking Status: Never Smoked Hx Alcohol Use: No Hx Substance Use: No Hx Substance Use Treatment: No Allergies/Home Meds Allergies/Adverse Reactions: Allergies aspirin Allergy (Verified 04/20/17 13:14) RASH lansoprazole [From Prevacid] Allergy (Verified 04/20/17 13:14) RASH Home Medications: Home Meds Medication Instructions Recorded Confirmed Atorvastatin [Lipitor] 10 mg PO DAILY 03/31/15 03/07/17 Meclizine [Meclizine*] 25 mg PO Q6 PRN 01/24/17 03/07/17 Metformin HCl [Glucophage] 500 mg PO BID 03/07/17 03/07/17 Review of Systems - Review of Systems Constitutional: Normal Eyes: Normal ENT: Normal Respiratory: Normal Cardiovascular: Normal Gastrointestinal: Nausea Genitourinary Female: Normal Musculoskeletal: Normal Skin: Normal Neurological: Headache, Dizziness. absent: Focal Weakness, Gait Changes, Speech Changes, Facial Droop, Disequilibrium Endocrine: Normal Hemo/Lymphatic: Normal Psychiatric: Normal Physical Exam Vital Signs Reviewed: Yes Vital Signs Temp Pulse Resp BP Pulse Ox 04/20/17 13:11 97.9 F 69 16 120/65 97 Temperature: Afebrile Blood Pressure: Normal Pulse: Regular Respiratory Rate: Normal Appearance: Positive for: Well-Appearing, Non-Toxic, Other (uncomfortable, NAD, alert/awake, oriented x 3, GCS = 15, cooperative) Pain Distress: None Mental Status: Positive for: Alert and Oriented X 3 Finger Stick Blood Glucose: 119 - Systems Exam Head: Present: Atraumatic, Normocephalic Pupils: Present: PERRL, Other (no nystagmus, no photophobia, sclera anicteric, no visual field deficits) Extroacular Muscles: Present: EOMI Conjunctiva: Present: Normal Mouth: Present: Moist Mucous Membranes, Other (intact dentitions; no exudate/ lesions, no drooling/stridor, uvula/tongue are midline) Nose (External): Present: Atraumatic Neck: Present: Normal Range of Motion, Trachea Midline. No: MIDLINE TENDERNESS Respiratory/Chest: Present: Clear to Auscultation, Good Air Exchange. No: Respiratory Distress, Accessory Muscle Use Cardiovascular: Present: Regular Rate and Rhythm, Normal S1, S2. No: Murmurs Abdomen: Present: Normal Bowel Sounds, Other (well nourished female, no focal tenderness, no kemp's sign, no mcburney's point tenderness, no masses/rebound/ guarding/rigidity). No: Tenderness, Distention, Peritoneal Signs Back: Present: Normal Inspection. No: CVA Tenderness Upper Extremity: Present: Normal Inspection, Normal ROM, NORMAL PULSES, Capillary Refill < 2s. No: Cyanosis, Edema Lower Extremity: Present: Normal Inspection, NORMAL PULSES, Normal ROM, Capillary Refill < 2 s. No: Edema Neurological: Present: GCS=15, CN II-XII Intact, Speech Normal Skin: Present: Warm, Dry, Normal Color, Other (cap refill < 1sec, no ulcerations , no petechiae). No: Rashes Psychiatric: Present: Alert, Oriented x 3, Normal Insight, Normal Concentration Medical Decision Making ED Course and Treatment: 04/20/17 Impression: 56 year old female with dizziness and headache. Differential Diagnosis included but are not limited to: Plan: -- EKG -- Labs -- Urinalysis -- Antivert, Reglan, Toradol, Sodium Chloride -- Reassess and disposition Progress Notes: 04/20/17 16:40 pt felt much improved pt states no more dizziness/shakiness pt is now able to change position with ease and ambulate with ease pt is made aware of her medical results pt is encouraged fluids pt will f/u as directed pt will be discharged home 04/20/17 16:49 Reassessment Condition: Improved - Lab Interpretations Lab Results: 04/20/17 14:40 Lab Results 04/20/17 14:40: Sodium 138, Potassium 4.4, Chloride 106, Carbon Dioxide 25, Anion Gap 12, BUN 15, Creatinine 0.7, Est GFR ( Amer) > 60, Est GFR (Non- Af Amer) > 60, Random Glucose 183 H, Calcium 9.5 I have reviewed the lab results: Yes Interpretation: Abnormal lab values (elevated GLUC) - EKG Interpretation EKG Interpretation (Text): 04/20/17 16:41 NSR at 70 bpm, normal axis, no ectopy, no st-t change, WNL EKG; unchanged compare with old ekg 12/201604/20/17 16:42 Interpreted by ED Physician: Yes Type: 12 lead EKG Comparison: Similar to previous EKG - Medication Orders Current Medication Orders: Discontinued Medications Sodium Chloride (Sodium Chloride 0.9%) 500 mls @ 999 mls/hr IV .Q31M STA Stop: 04/20/17 14:07 Last Admin: 04/20/17 14:53 Dose: 999 mls/hr eMAR Start Stop Document 04/20/17 14:53 SC (Rec: 04/20/17 14:53 [facility]) Intravenous Solution Start Date 04/20/17 Start Time 14:53 End Date 04/20/17 End time 15:53 Total Infusion Time 60 Ketorolac Tromethamine (Toradol) 15 mg IVP STAT STA Stop: 04/20/17 13:39 Last Admin: 04/20/17 14:53 Dose: 15 mg MAR Pain Assessment Document 04/20/17 14:53 [facility] (Rec: 04/20/17 14:53 [facility]) Pain Reassessment Is this a pain reassessment? No Sleep Is patient sleeping during reassessment? No Presence of Pain Presence of Pain Yes IVP Administration Document 04/20/17 14:53 SC (Rec: 04/20/17 14:53 [facility]) Charges for Administration # of IVP Administrations 1 Meclizine HCl (Antivert) 25 mg PO STAT STA Stop: 04/20/17 13:36 Last Admin: 04/20/17 14:52 Dose: 25 mg Metoclopramide HCl (Reglan) 10 mg IVP STAT STA Stop: 04/20/17 13:37 Last Admin: 04/20/17 14:52 Dose: 10 mg IVP Administration Document 04/20/17 14:52 SC (Rec: 04/20/17 14:52 [facility]) Charges for Administration # of IVP Administrations 1 NIHSS Stroke Scale 3 - Date/Time Evaluation Performed Date Performed: 04/20/17 Time Performed: 13:30 When Was NIHSS Performed: Baseline - How Severe is the Stroke Level of Consciousness: 0=Alert LOC to Questions: 0=Both comments correct LOC to commands: 0=Obeys both correctly Best Gaze: 0=Normal Visual: 0=No visual loss Facial: 0=Normal Motor Arm - Left: 0=No drift Motor Arm - Right: 0=No drift Motor Leg - Left: 0=No drift Motor Leg - Right: 0=No drift Limb Ataxia: 0=Absent Sensory: 0=Normal Best Language: 0=No aphasia Dysarthia: 0=Normal articulation Extinction & Inattention (Neglect): 0=Normal, no object Score: 0 - Scribe Statement The provider has reviewed the documentation as recorded by the Justinibe Gayle Weathers Provider Scribe Attestation: All medical record entries made by the Scribe were at my direction and personally dictated by me. I have reviewed the chart and agree that the record accurately reflects my personal performance of the history, physical exam, medical decision making, and the department course for this patient. I have also personally directed, reviewed, and agree with the discharge instructions and disposition. Disposition/Present on Arrival - Present on Arrival Any Indicators Present on Arrival: No History of DVT/PE: No History of Uncontrolled Diabetes: No Urinary Catheter: No History of Decub. Ulcer: No History Surgical Site Infection Following: None - Disposition Have Diagnosis and Disposition been Completed?: Yes Diagnosis: Vertigo, Acute hyperglycemia Disposition: HOME/ ROUTINE Disposition Time: 16:44 Patient Plan: Discharge Patient Problems: Current Active Problems Problem Status Onset Vertigo Acute Acute hyperglycemia Acute Condition: STABLE Discharge Instructions (ExitCare): Vertigo (ED), Diabetic Hyperglycemia (ED) Print Language: FAROESE Additional Instructions: Make sure to see your doctor in 1-2 days DRINK PLENTY OF FLUIDS take your medications as prescribed RETURN TO ED IF worse pain, cant breath, persistent vomiting, high fever >101- 102 for hours, altered behavior, unable to urinate, heavy/persistent bleeding, passing out, chest pain, or other medical emergencies Prescriptions: Meclizine [Meclizine*] 25 mg PO Q6 #30 tab Metoclopramide [Reglan] 10 mg PO TID #20 tab Referrals: Victoriano Lopez MD [Primary Care Provider] - Follow up with primary Forms: [employer] [facility] ([place]), WORK NOTE
[2017-04-20 15:08] LABS: BLOOD UREA NITROGEN 15 mg/dL (7-21); CALCIUM 9.5 mg/dL (8.4-10.5); CARBON DIOXIDE 25 mmol/L (21-33); CHLORIDE 106 mmol/L (98-107); GFR AFRICAN-AMERICAN > 60; GLUCOSE,RANDOM 183 mg/dL (70-110); POTASSIUM 4.4 mmol/L (3.6-5.0); SODIUM 138 mmol/L (132-148)
--- NOTE | 2017-04-21 09:30 | CARD ---
APPROVED REPORT EKG Measurement Heart [id number] <Conclusion> Normal sinus rhythm with sinus arrhythmia Prolonged QTc, new
== END 2017-04-20 17:27 | disposition home or self-care (01) ==
LOC: ED 13:05
DX: R42 Dizziness and giddiness (principal); E11.65 Type 2 diabetes mellitus with hyperglycemia
CPT/HCPCS: 80048; 93005; 96361; 96374; 96375; 99285; J1885; J2765; J7040

== ENCOUNTER 2017-06-25 11:54 | Emergency (ER) | payer OTHER, BC ==
[2017-06-25 12:07] VITALS: BMI 22.6
--- NOTE | 2017-06-25 12:48 | ED PDOC ---
Arrival/HPI - General Chief Complaint: Syncope Time Seen by Provider: 06/25/17 11:58 Historian: Patient - History of Present Illness Narrative History of Present Illness (Text): 06/25/17 12:47 A 56 year old female, whose past medical history includes diabetes and vertigo, [place] [facility] [place]. Patient reports she felt like passing out and fell. Reports similar symptoms in the past, feels like vertigo. Patient' s pressure was 160 systolic. Patient denies any headache or any other complaints at this time. PMD: Dr. Lopez Symptom Onset: Sudden Symptom Course: Unchanged Activities at Onset: Rest Context: Work Past Medical History - Provider Review Nursing Documentation Reviewed: Yes - Infectious Disease Hx of Infectious Diseases: None - Tetanus Immunization Tetanus Immunization: Unknown - Past Medical History Past Medical History: Unable to Obtain - Cardiac Hx Cardiac Disorders: No - Pulmonary Hx Respiratory Disorders: No - Neurological Hx Neurological Disorder: (vertigo) Hx Syncope: Yes Hx Vertigo: Yes - HEENT Hx HEENT Disorder: Yes - Renal Hx Renal Disorder: No - Endocrine/Metabolic Hx Diabetes Mellitus Type 2: Yes - Hematological/Oncological Hx Blood Disorders: No - Integumentary Hx Dermatological Disorder: No - Musculoskeletal/Rheumatological Hx Musculoskeletal Disorders: Yes - Gastrointestinal Hx Gastrointestinal Disorders: (colitis) Hx Diverticulitis: Yes - Genitourinary/Gynecological Hx Genitourinary Disorders: No - Psychiatric Hx Psychophysiologic Disorder: No Hx Substance Use: No - Past Surgical History Past Surgical History: Unable to Obtain - Surgical History Hx Cholecystectomy: Yes - Anesthesia Hx Anesthesia: Yes Hx Anesthesia Reactions: No Hx Malignant Hyperthermia: No - Suicidal Assessment Feels Threatened In Home Enviroment: No Family/Social History - Physician Review Nursing Documentation Reviewed: Yes Family/Social History: No Known Family HX Smoking Status: Never Smoked Hx Alcohol Use: No Hx Substance Use: No Hx Substance Use Treatment: No Allergies/Home Meds Allergies/Adverse Reactions: Allergies aspirin Allergy (Verified 04/20/17 13:14) RASH lansoprazole [From Prevacid] Allergy (Verified 04/20/17 13:14) RASH Home Medications: Home Meds Medication Instructions Recorded Confirmed Atorvastatin [Lipitor] 10 mg PO DAILY 03/31/15 06/25/17 Meclizine [Meclizine*] 25 mg PO Q6 PRN 01/24/17 06/25/17 Metformin HCl [Glucophage] 500 mg PO BID 03/07/17 06/25/17 Review of Systems - Physician Review All systems were reviewed & negative as marked: Yes - Review of Systems Constitutional: absent: Fevers Neurological: Dizziness. absent: Headache Physical Exam Vital Signs Reviewed: Yes Vital Signs Temp Pulse Resp BP Pulse Ox 06/25/17 14:00 98 F 82 20 131/56 L 99 06/25/17 12:07 98.6 F 91 H 18 140/68 98 Temperature: Afebrile Blood Pressure: Normal Pulse: Regular Respiratory Rate: Normal Appearance: Positive for: Well-Appearing, Non-Toxic, Comfortable Pain Distress: None Mental Status: Positive for: Alert and Oriented X 3 - Systems Exam Head: Present: Atraumatic, Normocephalic Pupils: Present: Other (horizontal nystagmus) Extroacular Muscles: Present: EOMI Conjunctiva: Present: Normal Mouth: Present: Moist Mucous Membranes Neck: Present: Normal Range of Motion Respiratory/Chest: Present: Clear to Auscultation, Good Air Exchange. No: Respiratory Distress, Accessory Muscle Use Cardiovascular: Present: Regular Rate and Rhythm, Normal S1, S2. No: Murmurs Abdomen: Present: Normal Bowel Sounds. No: Tenderness, Distention, Peritoneal Signs Back: Present: Normal Inspection Upper Extremity: Present: Normal Inspection. No: Cyanosis, Edema Lower Extremity: Present: Normal Inspection. No: Edema Neurological: Present: GCS=15, CN II-XII Intact, Speech Normal Skin: Present: Warm, Dry, Normal Color. No: Rashes Psychiatric: Present: Alert, Oriented x 3, Normal Insight, Normal Concentration Medical Decision Making ED Course and Treatment: 06/25/17 12:45 Impression: A 56 year old female with dizziness. Plan: -- EKG -- labs -- CT head -- Urinalysis -- Antivert -- Reassess and disposition Prior Visits: Notes and results from previous visits were reviewed. Patient was last seen in the emergency department on 04/20/17 for evaluation of dizziness and headache. Progress Notes: EKG: Ordered, reviewed, and independently interpreted the EKG. Rate : 86 BPM Rhythm : NSR Interpretation : No ST/T wave changes 06/25/17 13:29 CT HEAD WITHOUT CONTRAST Creator : Ronnie Duvall MD FINDINGS: HEMORRHAGE: No intracranial hemorrhage. BRAIN: No mass effect or edema. No atrophy or chronic microvascular ischemic changes. VENTRICLES: Unremarkable. No hydrocephalus. CALVARIUM: Unremarkable. PARANASAL SINUSES: Unremarkable as visualized. No significant inflammatory changes. MASTOID AIR CELLS: Unremarkable as visualized. No inflammatory changes. IMPRESSION: No acute findings 06/25/17 13:55 Patient's symptoms are improving. Dr. Lopez at bedside, advised for patient to be admitted, patient refusing. - Lab Interpretations Lab Results: 06/25/17 12:48 06/25/17 12:48 Lab Results 06/25/17 13:37: Urine Color Light yellow, Urine Appearance Clear, Urine pH 6.5, Ur Specific [place] 1.010, Urine Protein Negative, Urine Glucose (UA) >=1000, Urine Ketones Negative, Urine Blood Negative, Urine Nitrate Negative, Urine Bilirubin Negative, Urine Urobilinogen 0.2, Ur Leukocyte Esterase Negative 06/25/17 12:48: Sodium 139, Potassium 4.3, Chloride 102, Carbon Dioxide 25, Anion Gap 17, BUN 13, Creatinine 0.6 L, Est GFR ( Amer) > 60, Est GFR ( Non-Af Amer) > 60, Random Glucose 287 H, Calcium 9.9, Magnesium 2.1, Total Bilirubin 0.3, AST 23, ALT 31, Alkaline Phosphatase 82, Lactate Dehydrogenase 526, Total Creatine Kinase 116, Troponin I < 0.01, Total Protein 7.1, Albumin 4.1, Globulin 3.0, Albumin/Globulin Ratio 1.4 06/25/17 12:48: PT 10.4, INR 0.91 L, APTT 34.1 06/25/17 12:48: WBC 7.7, RBC 4.56, Hgb 13.5, Hct 40.7, MCV 89.3, MCH 29.6, MCHC 33.2, RDW 12.5, Plt Count 239, MPV 9.8, Gran % 52.7, Lymph % (Auto) 41.2 H, [place] % (Auto) 4.3, Eos % (Auto) 1.4 L, Baso % (Auto) 0.4, Gran # 4.08, Lymph # ( Auto) 3.2, [place] # (Auto) 0.3, Eos # (Auto) 0.1, Baso # (Auto) 0.03 06/25/17 12:45: POC Glucose (mg/dL) 270 H I have reviewed the lab results: Yes - RAD Interpretation Radiology Orders: 06/25/17 12:26 HEAD W/O CONTRAST [CT] Stat - EKG Interpretation Interpreted by ED Physician: Yes Type: 12 lead EKG - Medication Orders Current Medication Orders: Discontinued Medications Meclizine HCl (Antivert) 25 mg PO STAT STA Stop: 06/25/17 12:27 Last Admin: 06/25/17 12:36 Dose: 25 mg - Scribe Statement The provider has reviewed the documentation as recorded by the Rosaura Tirado Provider Scribe Attestation: All medical record entries made by the Justinibe were at my direction and personally dictated by me. I have reviewed the chart and agree that the record accurately reflects my personal performance of the history, physical exam, medical decision making, and the department course for this patient. I have also personally directed, reviewed, and agree with the discharge instructions and disposition. Disposition/Present on Arrival - Present on Arrival Any Indicators Present on Arrival: No History of DVT/PE: No History of Uncontrolled Diabetes: No Urinary Catheter: No History of Decub. Ulcer: No History Surgical Site Infection Following: None - Disposition Have Diagnosis and Disposition been Completed?: Yes Diagnosis: Dizziness Disposition: HOME/ ROUTINE Disposition Time: 02:00 Condition: STABLE Discharge Instructions (ExitCare): Vertigo (a Type of Dizziness), Dizziness, Nonvertigo, (DC) Additional Instructions: you are declining admission. yo u are able to return to er with worsening symptoms or concerns Referrals: Pradeep Blair MD [Staff Provider] - Follow up with primary Victoriano Lopez MD [Primary Care Provider] - Follow up with primary Kartik Spring DO [Doctor Osteopathy] - Follow up with primary Forms: [employer] ([place]), WORK NOTE
--- NOTE | 2017-06-25 12:48 | PCM.FALL ---
Post Fall Progress Note - Post Fall Fall Date: 06/25/17 Fall Time: 12:00 Description of Fall: Patient was pushing food cart on [address] when she experienced dizziness and fell to the floor in front of the nurses station. She denies hitting her head or any pain. - Post Fall Exam Vital Sign: Temp Pulse Resp BP Pulse Ox 98.6 F 91 H 18 140/68 98 06/25/17 12:07 06/25/17 12:07 06/25/17 12:07 06/25/17 12:07 06/25/17 12:07 Skull Exam: Negative for: Scalp wound, Scalp depression Eye Exam: Positive for: Pupils equal, Pupils reactive Ear Exam: Negative for: Discharge, Bleeding Nose Exam: Negative for: Discharge, Bleeding Skin Exam: Negative for: Lacerations Mouth Exam: Negative for: Tongue bitten Neck Exam: Negative for: Tenderness Spinal Exam: Negative for: Tenderness Chest Exam: Negative for: Difficulty breathing Abdomen Exam: Negative for: Tenderness Pelvic Exam: Negative for: Tenderness Arm Exam: Negative for: Deformity Leg Exam: Negative for: Deformity Impression/Plan: Patient found to be hypertensive, hyperglycemic, and without gross trauma. She was taken to the ER for further evaluation. Of note, en route to the ER patient became nauseous with an episode of wretching but no vomiting.
[2017-06-25 13:06] LABS: BASO # 0.03 K/mm3 (0.0-2.0); BASO % 0.4 % (0.0-3.0); EOS # 0.1 (0.0-0.7); EOS % 1.4 % (1.5-5.0); GRAN # 4.08 (1.4-6.5); GRAN % 52.7 % (50.0-68.0); HEMOGLOBIN 13.5 g/dL (12.0-16.0); LYMPH # 3.2 (1.2-3.4); LYMPH % 41.2 % (22.0-35.0); MEAN CELL VOLUME 89.3 fl (80.0-105.0); MEAN CORPUSCULAR HEMOGLOBIN 29.6 pg (25.0-35.0); MEAN CORPUSCULAR HGB CONC 33.2 g/dl (31.0-37.0); MEAN PLATELET VOLUME 9.8 fl (7.0-11.0); MONO # 0.3 (0.1-0.6); MONO % 4.3 % (1.0-6.0); RBC 4.56 10^6/uL (3.5-6.1); RED CELL DISTRIBUTION WIDTH 12.5 % (11.5-14.5); WHITE BLOOD COUNT 7.7 10^3/ul (4.5-11.0)
[2017-06-25 13:17] LABS: INR 0.91 (0.93-1.08); PARTIAL THROMBOPLASTIN TIME 34.1 Seconds (25.1-36.5); PROTHROMBIN TIME 10.4 SECONDS (9.4-12.5)
[2017-06-25 13:24] LABS: ALB/GLOB RATIO 1.4 (1.1-1.8); ALBUMIN 4.1 g/dL (3.0-4.8); AST/SGOT 23 U/L (14-36); BLOOD UREA NITROGEN 13 mg/dL (7-21); GFR AFRICAN-AMERICAN > 60; GFR NON-AFRICAN AMERICAN > 60; MAGNESIUM 2.1 mg/dL (1.7-2.2)
--- NOTE | 2017-06-25 13:26 | CT ---
PROCEDURE: CT HEAD WITHOUT CONTRAST. HISTORY: kemp COMPARISON: None available. TECHNIQUE: Axial computed tomography images were obtained through the head/brain without intravenous contrast. Radiation dose: Total exam DLP = 853 mGy-cm. This CT exam was performed using one or more of the following dose reduction techniques: Automated exposure control, adjustment of the mA and/or kV according to patient size, and/or use of iterative reconstruction technique. FINDINGS: HEMORRHAGE: No intracranial hemorrhage. BRAIN: No mass effect or edema. No atrophy or chronic microvascular ischemic changes. VENTRICLES: Unremarkable. No hydrocephalus. CALVARIUM: Unremarkable. PARANASAL SINUSES: Unremarkable as visualized. No significant inflammatory changes. MASTOID AIR CELLS: Unremarkable as visualized. No inflammatory changes. OTHER FINDINGS: None. IMPRESSION: No acute findings
[2017-06-25 13:33] LABS: ALT/SGPT 31 U/L (7-56); CALCIUM 9.9 mg/dL (8.4-10.5); TROPONIN I < 0.01 ng/mL
[2017-06-25 13:52] LABS: PH,URINE 6.5 (4.7-8.0); URINE APPEARANCE CLEAR (CLEAR); URINE BILIRUBIN NEGATIVE (NEGATIVE); URINE BLOOD NEGATIVE (NEGATIVE); URINE COLOR LIGHT YELLOW (YELLOW); URINE GLUCOSE (UA) >=1000 mg/dL (NEGATIVE); URINE LEUKOCYTE ESTERASE NEGATIVE Leu/uL (NEGATIVE); URINE NITRATE NEGATIVE (NEGATIVE); URINE PROTEIN NEGATIVE mg/dL (<30 mg/dL); URINE UROBILINOGEN 0.2 E.U./dL (<1 E.U./dL)
[2017-06-25 14:26] VITALS: BP 131/56; PULSE 82; RESP 20; TEMP 98; O2SAT 99
--- NOTE | 2017-06-25 16:35 | CARD ---
APPROVED REPORT EKG Measurement Heart [id number] <Conclusion> Normal sinus rhythm Cannot rule out Anterior infarct, age undetermined Abnormal ECG
== END 2017-06-25 14:27 | disposition home or self-care (01) ==
LOC: ED 11:54
DX: R42 Dizziness and giddiness (principal); E11.9 Type 2 diabetes mellitus without complications

== ENCOUNTER 2018-03-08 08:54 | Emergency (ER) | payer BC ==
[2018-03-08 08:55] VITALS: BMI 22.6
[2018-03-08 09:05] VITALS: PULSE 78; RESP 18; TEMP 98
[2018-03-08] MEDS ORDERED: Sodium Chloride 0.9% 1,000 ML IV STA ×2 (09:43→09:48)
[2018-03-08 09:51] LABS: BASO # 0.03 K/mm3 (0.0-2.0); BASO % 0.4 % (0.0-3.0); EOS # 0.1 (0.0-0.7); EOS % 1.7 % (1.5-5.0); GRAN # 3.5 (1.4-6.5); GRAN % 42.9 % (50.0-68.0); HEMOGLOBIN 14.4 g/dL (12.0-16.0); LYMPH # 4.1 (1.2-3.4); LYMPH % 49.8 % (22.0-35.0); MEAN CELL VOLUME 87.3 fl (80.0-105.0); MEAN CORPUSCULAR HEMOGLOBIN 29.9 pg (25.0-35.0); MEAN CORPUSCULAR HGB CONC 34.2 g/dl (31.0-37.0); MONO # 0.4 (0.1-0.6); MONO % 5.2 % (1.0-6.0); RBC 4.82 10^6/uL (3.5-6.1); RED CELL DISTRIBUTION WIDTH 12.3 % (11.5-14.5); WHITE BLOOD COUNT 8.1 10^3/uL (4.5-11.0)
[2018-03-08 10:00] LABS: INR 0.96; PARTIAL THROMBOPLASTIN TIME 34.1 Seconds (25.1-36.5)
[2018-03-08 10:01] LABS: ALB/GLOB RATIO 1.3 (1.1-1.8); ALBUMIN 4.4 g/dL (3.0-4.8); ALT/SGPT 35 U/L (7-56); AST/SGOT 25 U/L (14-36); BLOOD UREA NITROGEN 17 mg/dL (7-21); CALCIUM 9.6 mg/dL (8.4-10.5); GFR NON-AFRICAN AMERICAN > 60; LIPASE 175 U/L (23-300)
[2018-03-08 10:12] LABS: TROPONIN I < 0.01 ng/mL
--- NOTE | 2018-03-08 11:33 | ED PDOC ---
Arrival/HPI - General Chief Complaint: GI Problem Time Seen by Provider: 03/08/18 09:34 Historian: Patient - History of Present Illness Narrative History of Present Illness (Text): 03/08/18 11:24 57yo female with pmhx of NIDDM, vertigo and hyperlipdemia. states she started having dizziness, described as "the room spinning" causing her to vomit this morning. States she hve not taken medication for dizziness for a while now. This is her typical prior symptom with vertigo. Notes that she did not check her BS today and did not take her medication. Denies headache, focal weakness, chest pain, SOB, diaphoresis, tinnitus, URI symptoms, fever, chills, abdominal pain, diarrhea, constipation, any other complaint. Past Medical History - Provider Review Nursing Documentation Reviewed: Yes - Infectious Disease Hx of Infectious Diseases: None - Tetanus Immunization Tetanus Immunization: Unknown - Reproductive Menopause: Yes - Past Medical History Past Medical History: Unable to Obtain - Cardiac Hx Cardiac Disorders: Yes - Pulmonary Hx Respiratory Disorders: No - Neurological Hx Neurological Disorder: (vertigo) Hx Syncope: Yes Hx Vertigo: Yes - HEENT Hx HEENT Disorder: Yes - Renal Hx Renal Disorder: No - Endocrine/Metabolic Hx Diabetes Mellitus Type 2: Yes - Hematological/Oncological Hx Blood Disorders: No - Integumentary Hx Dermatological Disorder: No - Musculoskeletal/Rheumatological Hx Musculoskeletal Disorders: Yes - Gastrointestinal Hx Gastrointestinal Disorders: (colitis) Hx Diverticulitis: Yes - Genitourinary/Gynecological Hx Genitourinary Disorders: No - Psychiatric Hx Psychophysiologic Disorder: No Hx Substance Use: No - Past Surgical History Past Surgical History: Unable to Obtain - Surgical History Hx Cholecystectomy: Yes - Anesthesia Hx Anesthesia: Yes Hx Anesthesia Reactions: No Hx Malignant Hyperthermia: No - Suicidal Assessment Feels Threatened In Home Enviroment: No Family/Social History - Physician Review Nursing Documentation Reviewed: Yes Family/Social History: Unknown Family HX Smoking Status: Never Smoked Hx Alcohol Use: No Hx Substance Use: No Hx Substance Use Treatment: No Allergies/Home Meds Allergies/Adverse Reactions: Allergies aspirin Allergy (Verified 03/08/18 09:05) RASH lansoprazole [From Prevacid] Allergy (Verified 03/08/18 09:05) RASH Home Medications: Home Meds Medication Instructions Recorded Confirmed RX: Atorvastatin [Lipitor] 10 mg PO DAILY 03/31/15 06/25/17 RX: Meclizine [Meclizine*] 25 mg PO Q6 PRN 01/24/17 06/25/17 RX: Metformin HCl [Glucophage] 500 mg PO BID 03/07/17 06/25/17 Review of Systems - Physician Review All systems were reviewed & negative as marked: Yes - Review of Systems Constitutional: Normal Eyes: Normal ENT: Normal Respiratory: Normal Cardiovascular: Normal Gastrointestinal: Nausea, Vomiting. absent: Abdominal Pain, Constipation, Diarrhea, Hematochezia, Hematemesis Genitourinary Female: Normal Musculoskeletal: Normal Skin: Normal Neurological: Dizziness. absent: Headache, Focal Weakness Endocrine: Normal Hemo/Lymphatic: Normal Psychiatric: Normal Physical Exam Vital Signs Reviewed: Yes Vital Signs Temp Pulse Resp BP Pulse Ox 03/08/18 09:01 98 F 78 18 123/69 99 Temperature: Afebrile Blood Pressure: Normal Pulse: Regular Respiratory Rate: Normal Appearance: Positive for: Well-Appearing, Non-Toxic, Comfortable Pain Distress: None Mental Status: Positive for: Alert and Oriented X 3 - Systems Exam Head: Present: Atraumatic, Normocephalic Pupils: Present: PERRL Extroacular Muscles: Present: EOMI Conjunctiva: Present: Normal Mouth: Present: Moist Mucous Membranes Neck: Present: Normal Range of Motion Respiratory/Chest: Present: Clear to Auscultation, Good Air Exchange. No: Respiratory Distress, Accessory Muscle Use Cardiovascular: Present: Regular Rate and Rhythm, Normal S1, S2. No: Murmurs Abdomen: No: Tenderness, Distention, Peritoneal Signs Back: Present: Normal Inspection Upper Extremity: Present: Normal Inspection. No: Cyanosis, Edema Lower Extremity: Present: Normal Inspection. No: Edema Neurological: Present: GCS=15, CN II-XII Intact, Speech Normal, Motor Func Grossly Intact, Normal Sensory Function, Normal Cerebellar Funct, Norm Deep Tendon Reflexes, Gait Normal, Memory Normal, Other (No focal weakness) Skin: Present: Warm, Dry, Normal Color. No: Rashes Psychiatric: Present: Alert, Oriented x 3, Normal Insight, Normal Concentration Medical Decision Making ED Course and Treatment: 03/08/18 13:53 57yo female in ED for stated history. She was neurologically intact in ED and hemodynamically stable. Labs was ordered and reviewed all wnl with exception of BS of 219 which improved with hydration and Metformin to 158. She stated that she did not take her medication today. Pt have history of Vertigo and similar symptoms to her symptom today. Result was DW the pt and her symptom resolved in ED on re evaluation. she was DC home with Meclizine and referred to her PMD. - Lab Interpretations Lab Results: 03/08/18 09:17 03/08/18 09:17 Lab Results 03/08/18 09:21: POC Glucose (mg/dL) 205 H 03/08/18 09:17: Sodium 140, Potassium 3.8, Chloride 104, Carbon Dioxide 25, Anion Gap 14, BUN 17, Creatinine 0.7, Est GFR ( Amer) > 60, Est GFR (Non- Af Amer) > 60, Random Glucose 219 H, Calcium 9.6, Total Bilirubin 0.3, AST 25, ALT 35, Alkaline Phosphatase 90, Lactate Dehydrogenase 497, Total Creatine Kinase 95, Troponin I < 0.01, Total Protein 7.8, Albumin 4.4, Globulin 3.4, Albumin/Globulin Ratio 1.3, Lipase 175 03/08/18 09:17: PT 11.0, INR 0.96, APTT 34.1 03/08/18 09:17: WBC 8.1, RBC 4.82, Hgb 14.4, Hct 42.1, MCV 87.3, MCH 29.9, MCHC 34.2, RDW 12.3, Plt Count 248, MPV 10.0, Gran % 42.9 L, Lymph % (Auto) 49.8 H, [place] % (Auto) 5.2, Eos % (Auto) 1.7, Baso % (Auto) 0.4, Gran # 3.50, Lymph # (Auto) 4.1 H, [place] # (Auto) 0.4, Eos # (Auto) 0.1, Baso # (Auto) 0.03 - Medication Orders Current Medication Orders: Discontinued Medications Sodium Chloride (Sodium Chloride 0.9%) 1,000 mls @ 999 mls/hr IV .Q1H1M STA Stop: 03/08/18 10:43 Last Admin: 03/08/18 10:01 Dose: 999 mls/hr eMAR Start Stop Document 03/08/18 10:01 GMD (Rec: 03/08/18 10:01 GMD [facility] – [id number] Intravenous Solution Start Date 03/08/18 Start Time 10:01 End Date 03/08/18 End time 11:02 Total Infusion Time 61 Meclizine HCl (Antivert) 25 mg PO STAT STA Stop: 03/08/18 10:46 Last Admin: 03/08/18 11:00 Dose: 25 mg Metformin HCl (Glucophage) 500 mg PO STAT STA Stop: 03/08/18 10:47 Last Admin: 03/08/18 11:00 Dose: 500 mg Metoclopramide HCl (Reglan) 10 mg IVP STAT STA Stop: 03/08/18 10:06 Last Admin: 03/08/18 10:19 Dose: 10 mg IVP Administration Document 03/08/18 10:19 GMD (Rec: 03/08/18 10:19 D [id number]) Charges for Administration # of IVP Administrations 1 Disposition/Present on Arrival - Present on Arrival Any Indicators Present on Arrival: No History of DVT/PE: No History of Uncontrolled Diabetes: No Urinary Catheter: No History of Decub. Ulcer: No History Surgical Site Infection Following: None - Disposition Have Diagnosis and Disposition been Completed?: Yes Diagnosis: Vertigo, Vomiting Disposition: HOME/ ROUTINE Disposition Time: 12:10 Patient Plan: Discharge Condition: STABLE Discharge Instructions (ExitCare): Vertigo (a Type of Dizziness) (DC), Nausea and Vomiting, Adult Additional Instructions: Follow up with your Doctor Return to ED for any new or worsening symptoms Prescriptions: RX: Meclizine [Meclizine*] 25 mg PO Q6 #15 tab Referrals: Shannan Bolton MD [Medical Doctor] - Follow up with primary Forms: [employer] (N[place]ian), WORK NOTE
[2018-03-08 11:40] LABS: URINE BILIRUBIN NEGATIVE (NEGATIVE); URINE BLOOD NEGATIVE (NEGATIVE); URINE GLUCOSE (UA) 250 mg/dL (NEGATIVE); URINE LEUKOCYTE ESTERASE NEGATIVE Leu/uL (NEGATIVE); URINE PROTEIN NEGATIVE mg/dL (<30 mg/dL); URINE UROBILINOGEN 0.2 E.U./dL (<1 E.U./dL)
[2018-03-08 11:45] LABS: URINE APPEARANCE CLEAR (CLEAR); URINE COLOR YELLOW (YELLOW)
[2018-03-08 12:11] VITALS: BP 122/72; O2SAT 98
== END 2018-03-08 12:27 | disposition home or self-care (01) ==
LOC: ED 08:54
DX: R42 Dizziness and giddiness (principal); R11.10 Vomiting, unspecified; E11.9 Type 2 diabetes mellitus without complications; Z90.49 Acquired absence of other specified parts of digestive tract
CPT/HCPCS: 80053; 81003; 82550; 82948; 83036; 83615; 83690; 84484; 85025; 85610; 85730; 96361; 96374; 99284; J2765; J7030

== ENCOUNTER 2018-05-21 10:54 | Emergency (ER) | payer BC, OTHER ==
[2018-05-21 10:55] VITALS: BMI 22.6
[2018-05-21 11:00] VITALS: O2SAT 100
--- NOTE | 2018-05-21 11:25 | ED PDOC ---
Arrival/HPI - General Chief Complaint: Syncope Historian: Patient - History of Present Illness Time/Duration: Prior to Arrival Symptom Onset: Sudden Symptom Course: Resolved Severity Level: Mild Activities at Onset: Rest Associated Symptoms (Text): 05/21/18 11:21 Patient reports that she was at work this morning and a coworker was touching her things which made the patient extremely stressed. She then developed some chest pain and had a syncopal episode where she lowered herself to the ground with no injury or trauma. She is currently chest pain-free. No dizziness or lightheadedness. No dyspnea. No nausea or vomiting. She has had multiple previous similar episodes. Past Medical History - Infectious Disease Hx of Infectious Diseases: None - Tetanus Immunization Tetanus Immunization: Unknown - Past Medical History Past Medical History: Unable to Obtain - Cardiac Hx Cardiac Disorders: Yes - Pulmonary Hx Respiratory Disorders: No - Neurological Hx Neurological Disorder: (vertigo) Hx Syncope: Yes Hx Vertigo: Yes - HEENT Hx HEENT Disorder: Yes - Renal Hx Renal Disorder: No - Endocrine/Metabolic Hx Diabetes Mellitus Type 2: Yes - Hematological/Oncological Hx Blood Disorders: No - Integumentary Hx Dermatological Disorder: No - Musculoskeletal/Rheumatological Hx Musculoskeletal Disorders: Yes - Gastrointestinal Hx Gastrointestinal Disorders: (colitis) Hx Diverticulitis: Yes - Genitourinary/Gynecological Hx Genitourinary Disorders: No - Psychiatric Hx Psychophysiologic Disorder: No Hx Substance Use: No - Past Surgical History Past Surgical History: Unable to Obtain - Surgical History Hx Cholecystectomy: Yes - Anesthesia Hx Anesthesia: Yes Hx Anesthesia Reactions: No Hx Malignant Hyperthermia: No - Suicidal Assessment Feels Threatened In Home Enviroment: No Family/Social History - Physician Review Nursing Documentation Reviewed: Yes Family/Social History: Unknown Family HX Smoking Status: Never Smoked Hx Alcohol Use: No Hx Substance Use: No Hx Substance Use Treatment: No Allergies/Home Meds Allergies/Adverse Reactions: Allergies aspirin Allergy (Verified 03/08/18 09:05) RASH lansoprazole [From Prevacid] Allergy (Verified 03/08/18 09:05) RASH Home Medications: Home Meds Medication Instructions Recorded Confirmed Atorvastatin [Lipitor] 10 mg PO DAILY 03/31/15 06/25/17 Meclizine [Meclizine*] 25 mg PO Q6 PRN 01/24/17 06/25/17 Metformin HCl [Glucophage] 500 mg PO BID 03/07/17 06/25/17 Review of Systems - Physician Review All systems were reviewed & negative as marked: Yes - Review of Systems Constitutional: absent: Fatigue, Fevers Respiratory: absent: SOB, Wheezing Cardiovascular: Chest Pain, Syncope. absent: Palpitations Gastrointestinal: absent: Abdominal Pain, Nausea, Vomiting Neurological: absent: Headache, Dizziness, Focal Weakness, Gait Changes Physical Exam Vital Signs Temp Pulse Resp BP Pulse Ox 05/21/18 10:55 98.8 F 100 H 18 150/94 H 100 Temperature: Afebrile Blood Pressure: Hypertensive Pulse: Regular Respiratory Rate: Normal Appearance: Positive for: Well-Appearing, Non-Toxic, Comfortable Pain Distress: None Mental Status: Positive for: Alert and Oriented X 3 Finger Stick Blood Glucose: 249 - Systems Exam Head: Present: Atraumatic, Normocephalic Pupils: Present: PERRL Extroacular Muscles: Present: EOMI Conjunctiva: Present: Normal Mouth: Present: Moist Mucous Membranes Pharnyx: No: ERYTHEMA, EXUDATE, TONSILS ENLARGED Neck: Present: Normal Range of Motion Respiratory/Chest: Present: Clear to Auscultation, Good Air Exchange. No: Respiratory Distress, Accessory Muscle Use Cardiovascular: Present: Regular Rate and Rhythm, Normal S1, S2. No: Murmurs Abdomen: No: Tenderness, Distention, Peritoneal Signs, Rebound, Guarding Upper Extremity: Present: Normal Inspection. No: Cyanosis, Edema Lower Extremity: Present: Normal Inspection. No: Edema Neurological: Present: GCS=15, CN II-XII Intact, Speech Normal, Motor Func Grossly Intact, Normal Sensory Function, Normal Cerebellar Funct Skin: Present: Warm, Dry, Normal Color. No: Rashes Psychiatric: Present: Alert, Oriented x 3, Normal Insight, Normal Concentration Medical Decision Making ED Course and Treatment: 05/21/18 12:31 EKG shows normal sinus rhythm rate approximately 100 with poor R-wave progression and no acute ST or T-wave changes 05/21/18 13:38 Chest one view shows no infiltrate effusion or cardiomegaly. 05/21/18 13:[address] scan is unremarkable. Blood sugar is elevated, but she does state she is taking her metformin. Situational reaction with syncope. Follow-up with PMD. Follow up in ER as needed. - RAD Interpretation Radiology Orders: 05/21/18 11:18 HEAD W/O CONTRAST [CT] Stat CHEST PORTABLE [RAD] Stat CT scan of the head as read by the radiologist shows no acute findings. Tour Leader: Radiologist Disposition/Present on Arrival - Present on Arrival Any Indicators Present on Arrival: No History of DVT/PE: No History of Uncontrolled Diabetes: No Urinary Catheter: No History of Decub. Ulcer: No History Surgical Site Infection Following: None - Disposition Have Diagnosis and Disposition been Completed?: Yes Diagnosis: Syncope, Reaction, situational Disposition: HOME/ ROUTINE Disposition Time: 13:40 Patient Plan: Discharge Condition: GOOD Discharge Instructions (ExitCare): Syncope (ED), Syncope (Fainting) Additional Instructions: Follow-up with PMD. Follow up in ER as needed. Referrals: Victoriano Lopez MD [Primary Care Provider] - Follow up with primary Forms: [employer] Connect ([place]ian), WORK NOTE
--- NOTE | 2018-05-21 11:28 | PCM.RRT ---
<Xander Pinto - Last Filed: 05/21/18 11:20> [employer] Nurse Assessment - Situation Date: 05/21/18 I.Reason for [employer] - A) Acute Change in Patient: Subjective: s/p vasovagal syncope episode - Neurological Status (Select all that apply): Alert, Responsive, Oriented, Verbal, Follows Commands - Respiratory Oxygen Delivery Method: Nasal Cannula @L/min (2) - Constitutional Appears: No Acute Distress - Head Head Exam: ATRAUMATIC, NORMAL INSPECTION, NORMOCEPHALIC - Eyes Eye Exam: EOMI, Normal appearance - Respiratory Exam Respiratory Exam: Clear to Ausculation Bilateral. absent: Accessory Muscle Use, Rales, Rhonchi, Wheezes - Cardiovascular Exam Cardiovascular Exam: RRR, +S1, +S2 - GI/Abdominal Exam GI & Abdominal Exam: Soft, Normal Bowel Sounds. absent: Guarding, Tenderness, Rebound - Neurological Exam Neurological Exam: Alert, Awake, Oriented x3 - Extremities Exam Extremities Exam: Full ROM, Normal Capillary Refill, Normal Inspection Plan - Assessment of Findings&Treatment Plan Xander Pinto, PGY1 [employer] Note for Dr. Huffman [employer] was called for the ground floor kitchen. Patient is an employee at [employer]. She was found on the floor with staff present to assist. As per patient, she said she felt emotional distress and fell down. She did not say the room was spinning. Denied lightheadedness, dizziness, LOC. No evidence of tongue biting, post-ictal state, or seizure-like activity. Patient was immediately transferred from Kitchen to ED. Her vitals: HR 100, BP 150/94, RR 14, SaO2 99% on room air. Patient is alert and oriented x3. She remembers the incident and mentions that she has had prior episodes of this before. She did however, endorse chest pain, left sided, prior to the incident occurring. Patient will be placed on nasal cannula. EKG was ordered stat and showed sinus tachy. No acute ST or T wave abnormalities. A stat troponin was also ordered. Patient is hemodynamically stable. Discussed with ED staff and attending. Signed out patient to care of the ED. <Morro Huffman - Last Filed: 05/21/18 15:41> Attending/Attestation - Attestation I have personally seen and examined this patient.: Yes I have fully participated in the care of the patient.: Yes I have reviewed all pertinent clinical information, including history, physical exam and plan: Yes Notes (Text): 05/21/18 15:39 Attending note; Patient seen during rapid response. And was on the floor in the kitchen area. Apparently patient was having disagreement with a coworker and felt stressed out and lowered herself to the floor. No injury noted. At the time eyes closed. Not in any acute distress. Vitals stable. Patient was immediately transferred to the ER. Patient complained of some chest discomfort. EKG showed sinus tachycardia. Patient is currently alert and awake. Drank some water. Denies any complaints. Case signed out to ER attending for further treatment and management.
[2018-05-21 12:36] LABS: BASO # 0.02 K/mm3 (0.0-2.0); BASO % 0.2 % (0.0-3.0); EOS # 0.1 (0.0-0.7); EOS % 1.4 % (1.5-5.0); GRAN # 4.35 (1.4-6.5); GRAN % 42.2 % (50.0-68.0); HEMOGLOBIN 14.5 g/dL (12.0-16.0); LYMPH # 5.3 (1.2-3.4); LYMPH % 51.7 % (22.0-35.0); MEAN CELL VOLUME 88.5 fl (80.0-105.0); MEAN CORPUSCULAR HEMOGLOBIN 29.7 pg (25.0-35.0); MEAN CORPUSCULAR HGB CONC 33.5 g/dl (31.0-37.0); MEAN PLATELET VOLUME 10.2 fl (7.0-11.0); MONO # 0.5 (0.1-0.6); MONO % 4.5 % (1.0-6.0); RBC 4.89 10^6/uL (3.5-6.1); RED CELL DISTRIBUTION WIDTH 12.5 % (11.5-14.5); WHITE BLOOD COUNT 10.3 10^3/uL (4.5-11.0)
[2018-05-21 12:44] LABS: ALB/GLOB RATIO 1.3 (1.1-1.8); ALBUMIN 4.6 g/dL (3.0-4.8); ALT/SGPT 42 U/L (7-56); AST/SGOT 33 U/L (14-36); BLOOD UREA NITROGEN 15 mg/dL (7-21); CALCIUM 9.7 mg/dL (8.4-10.5); GFR NON-AFRICAN AMERICAN > 60
[2018-05-21 12:53] LABS: TROPONIN I < 0.01 ng/mL
--- NOTE | 2018-05-21 12:54 | CT ---
Date of service: 05/21/2018 PROCEDURE: CT HEAD WITHOUT CONTRAST. HISTORY: syncope COMPARISON: 06/25/2017 TECHNIQUE: Axial computed tomography images were obtained through the head/brain without intravenous contrast. Radiation dose: Total exam DLP = 775.49 mGy-cm. This CT exam was performed using one or more of the following dose reduction techniques: Automated exposure control, adjustment of the mA and/or kV according to patient size, and/or use of iterative reconstruction technique. FINDINGS: HEMORRHAGE: No intracranial hemorrhage. BRAIN: No mass effect or edema. No atrophy or chronic microvascular ischemic changes. VENTRICLES: Unremarkable. No hydrocephalus. CALVARIUM: Unremarkable. PARANASAL SINUSES: Unremarkable as visualized. No significant inflammatory changes. MASTOID AIR CELLS: Unremarkable as visualized. No inflammatory changes. OTHER FINDINGS: None. IMPRESSION: No acute findings
[2018-05-21 13:11] VITALS: BP 147/67; PULSE 85; RESP 20; TEMP 98.7
--- NOTE | 2018-05-21 13:37 | RAD ---
Date of service: 05/21/2018 HISTORY: syncope COMPARISON: Portable chest 01/24/2017. FINDINGS: LUNGS: No active pulmonary disease. PLEURA: No significant pleural effusion identified, no pneumothorax apparent. CARDIOVASCULAR: No aortic atherosclerotic calcification present. Stable cardiac silhouette. No pulmonary vascular congestion. OSSEOUS STRUCTURES: No significant abnormalities. VISUALIZED UPPER ABDOMEN: Normal. OTHER FINDINGS: None. IMPRESSION: No interval acute cardiopulmonary disease appreciated.
--- NOTE | 2018-05-21 23:06 | CARD ---
APPROVED REPORT Date of service: 05/21/2018 EKG Measurement Heart [id number] <Conclusion> Normal sinus rhythm Possible Left atrial enlargement NDSTT abnormalities Abnormal ECG
== END 2018-05-21 14:12 | disposition home or self-care (01) ==
LOC: ED 10:54
DX: R55 Syncope and collapse (principal); F43.20 Adjustment disorder, unspecified; E11.9 Type 2 diabetes mellitus without complications